=== PATIENT | male | born 1960 | race Two or more races ===

== ENCOUNTER 2023-02-13 13:55 | Emergency (ER) | payer OTHER ==
[~2023-02-13] VITALS: Ht 177.8 cm; Wt 99.8 kg
[~2023-02-13 13:55] MED LIST: ALTACE2.5 MG; ATENOLOL50 MG; NORTUSS-EX LIQ118 ML PO; PLAVIX75 MG; SINGULAIR 10MG10 MG PO; TRICOR145 MG
[2023-02-13 16:56] LABS: HEMOGLOBIN 14.4 g/dL (13-16.00); MEAN CELL VOLUME 89.9 fL (80.0-100.00); MEAN CORPUSCULAR HEMOGLOBIN 30.9 pg (27.00-32.0); MEAN CORPUSCULAR HGB CONC 34.3 g/dl (32.0-36.0); PLATELET COUNT 177 K/uL (150-450); RED BLOOD COUNT 4.67 M/uL (4.00-6.00); RED CELL DISTRIBUTION WIDTH 13.4 % (11.5-14.5)
[2023-02-13 17:34] LABS: CREATININE SERUM 0.93 mg/dL (0.70-1.30); GFR 81.8; POTASSIUM 4.04 mEq/L (3.5-5.1)
[2023-02-13 19:32] LABS: ABG PH 7.407 (7.35-7.45); ABG PO2 100.3 mmHg (80-100); ABG pCO2 36.7 mmHg (35-45)
[2023-02-13 19:33] LABS: BASE EXCESS -1.6 mmol/l; BICARBONATE 22.6 mmol/l (23-25); Tco2 23.7 mmol/l; allen test SATISFACTORY; o2 21 %; puncture site RADIAL RIGHT
[2023-02-13 19:34] LABS: SaO2 97.7 %
[2023-02-13] MEDS ORDERED: COUGH & CHEST177 ML PO (20:09)
[2023-02-13] MEDS ORDERED: COMBIVENT RESPIM4 GM IH (20:10)
[2023-02-13] MEDS ORDERED: MEDROLPACK PO (20:10)
[2023-02-13] MEDS ORDERED: TUSSIN DM LIQU118 ML PO (20:12)
== END 2023-02-13 20:38 | disposition home or self-care (01) ==
LOC: ER 13:55
PROVIDERS: Nurse Practitioner Family
DX: J06.9 Acute upper respiratory infection, unspecified (principal); I10 Essential (primary) hypertension; Z88.0 Allergy status to penicillin; Z87.09 Personal history of other diseases of the respiratory system; Z20.822 Contact with and (suspected) exposure to COVID-19

== ENCOUNTER → 2023-06-07 | Emergency (ER) | payer OTHER ==
[~2023-06-07] VITALS: Ht 175.3 cm; Wt 95.3 kg
[~2023-06-07] MED LIST changes: +ATORVASTATIN CA40 MG; +COMBIVENT RESPIM4 GM IH; +COUGH & CHEST177 ML PO; +MEDROLPACK PO; +TUSSIN DM LIQU118 ML PO; +[UNRECOGNIZED DRUG - OTHER]
== END | disposition left against medical advice (07) ==
LOC: ER 03:02
DX: Z53.21 Procedure and treatment not carried out due to patient leaving prior to being seen by health care provider (principal)

== ENCOUNTER 2025-01-20 13:04 | Emergency (ER) | payer OTHER ==
[~2025-01-20] VITALS: Ht 177.8 cm; Wt 97.5 kg
[2025-01-20] MEDS ORDERED: ACETAMINOPHEN/COD (14:04)
[2025-01-20] MEDS ORDERED: CEFADROXIL500 MG PO (14:04)
[2025-01-20] MEDS ORDERED: MORPHINE SULFATE 2 MG/ML CARTRIDGE IV ONE (15:30)
== END 2025-01-20 18:12 | disposition home or self-care (01) ==
LOC: ER 13:04
DX: M25.532 Pain in left wrist (principal); I10 Essential (primary) hypertension; Z88.0 Allergy status to penicillin